=== PATIENT | female | born 1995 | race Two or more races ===

== ENCOUNTER 2020-03-25 16:48 | Emergency (ER) | payer MEDICAID, OTHER ==
[~2020-03-25] VITALS: Ht 154.9 cm; Wt 63.5 kg
[2020-03-25 17:26] LABS: Basophils # (auto) 0.1 10 ^3/uL (0-0.2); Basophils % (auto) 0.6 % (0.0-2.0); Eosinophils # (auto) 0 10 ^3/uL (0-0.8); Eosinophils % (auto) 0.1 % (0.0-7.0); Hematocrit 43.8 % (36.0-46.0); Hemoglobin 14.5 g/dL (12.2-16.2); Lymphocytes # (auto) 1.7 10 ^3/uL (0.4-5.4); Lymphocytes % (auto) 12.6 % (10.0-50.0); Mean Corpuscular Hemoglobin 29.1 pg (28.0-32.0); Mean Corpuscular Hgb Conc. 33.1 g/dL (32.0-36.0); Mean Corpuscular Volume 87.7 fL (80.0-100.0); Monocytes # (auto) 0.6 10 ^3/uL (0-1.3); Monocytes % (auto) 4.7 % (0.0-12.0); Nucleated Red Blood Cells % 0.1 %; Platelet Count (auto) 223 10^3/uL (140-450); Red Cell Distribution Width 13.6 % (11.8-14.3); White Blood Cell 13.4 10^3/uL (4.4-10.8)
[2020-03-25 17:55] LABS: Albumin 3.9 g/dL (3.4-5.0); Calcium 8.9 mg/dL (8.5-10.1); Potassium 3.2 mmol/L (3.5-5.1)
[2020-03-25 17:57] LABS: BUN/Creatinine Ratio 11.8
[2020-03-25 18:00] LABS: Bilirubin, Total 0.6 mg/dL (0.2-1.0); Total Protein 7.7 g/dL (6.4-8.2)
[2020-03-25] MEDS ORDERED: SODIUM CHLORIDE 0.9% 1,000 ML IV ONE ×2 (20:30→22:00)
[2020-03-25] MEDS ORDERED: ONDANSETRON HCL 4 MG/2 ML VIAL IV ONE (20:30)
[2020-03-25] MEDS ORDERED: POTASSIUM CHL 20MEQ/100ML 100 ML IV ONE (23:00)
[2020-03-25 23:50] VITALS: BP 114/47
[2020-03-26] MEDS ORDERED: ONDANSETRON HCL 4 MG/2 ML VIAL IV ONE (00:15)
[2020-03-26 00:16] LABS: Urine Bacteria MOD /hpf (None Seen); Urine Blood Negative /uL (Negative); Urine Mucus MODERATE (None Seen); Urine WBC 14 /hpf (0 - 5)
== END 2020-03-26 01:19 | disposition home or self-care (01) ==
LOC: ER 16:48
DX: O23.41 Unspecified infection of urinary tract in pregnancy, first trimester (principal); O21.8 Other vomiting complicating pregnancy; O99.281 Endocrine, nutritional and metabolic diseases complicating pregnancy, first trimester; E86.0 Dehydration; Z3A.08 8 weeks gestation of pregnancy
CPT/HCPCS: 36415; 76801; 80053; 81001; 84702; 85025; 96361; 96365; 96366; 96375; 96376; 99284; J2405; J3480; J7030

== ENCOUNTER → 2020-04-01 | Emergency (ER) | payer MEDICAID ==
[~2020-04-01] VITALS: Ht 154.9 cm; Wt 63.5 kg
[~2020-04-01] MED LIST: PROMETHAZINE HCL 25 MG/ML 1ML IV ONE; SODIUM CHLORIDE 0.9% 1,000 ML IV ONE
[2020-04-01 09:06] LABS: Basophils # (auto) 0 10 ^3/uL (0-0.2); Basophils % (auto) 0.2 % (0.0-2.0); Eosinophils # (auto) 0 10 ^3/uL (0-0.8); Eosinophils % (auto) 0.1 % (0.0-7.0); Hematocrit 48.7 % (36.0-46.0); Hemoglobin 16.6 g/dL (12.2-16.2); Lymphocytes # (auto) 1.4 10 ^3/uL (0.4-5.4); Lymphocytes % (auto) 6.8 % (10.0-50.0); Mean Corpuscular Volume 85.4 fL (80.0-100.0); Monocytes # (auto) 1.3 10 ^3/uL (0-1.3); Monocytes % (auto) 6.3 % (0.0-12.0); Neutrophils # (auto) 17.5 10 ^3/uL (1.6-8.6); Neutrophils % (auto) 86.6 % (37.0-80.0); Platelet Count (auto) 258 10^3/uL (140-450); Red Blood Cells 5.71 10^6/uL (4.0-5.20); Red Cell Distribution Width 12.9 % (11.8-14.3); White Blood Cell 20.2 10^3/uL (4.4-10.8)
[2020-04-01 09:25] LABS: Albumin 4.4 g/dL (3.4-5.0); Anion Gap 11 (5-15); Blood Urea Nitrogen 12 mg/dL (7-18); Calcium 9.3 mg/dL (8.5-10.1); Carbon Dioxide 27 mmol/L (21-32); Chloride 93 mmol/L (98-107); Glucose 110 mg/dL (74-106); Sodium 131 mmol/L (136-145)
[2020-04-01 09:28] VITALS: BP 121/78
[2020-04-01 09:29] LABS: Alanine Aminotransferase 26 U/L (13-56); Alkaline Phosphatase 82 U/L (45-117); Aspartate Aminotransferase 14 U/L (15-37); BUN/Creatinine Ratio 20.7; Bilirubin, Total 1.2 mg/dL (0.2-1.0); GFR African American 166 mL/min; GFR Non-African American 137 mL/min; Total Protein 8.4 g/dL (6.4-8.2)
[2020-04-01 09:30] LABS: Potassium 2.7 mmol/L (3.5-5.1)
[2020-04-01] MEDS: POTASSIUM EFFERVESENT TAB 25 MEQ PO ONE (09:45)
== END | disposition home or self-care (01) ==
LOC: ER 08:34
DX: O99.281 Endocrine, nutritional and metabolic diseases complicating pregnancy, first trimester (principal); E86.0 Dehydration; E87.6 Hypokalemia; O21.8 Other vomiting complicating pregnancy; Z3A.09 9 weeks gestation of pregnancy
CPT/HCPCS: 36415; 80053; 84484; 84702; 85025; 93005; 96361; 96374; 99284; J2550

== ENCOUNTER 2020-09-05 06:05 | Emergency (ER) | payer MEDICAID ==
[~2020-09-05] VITALS: Ht 157.5 cm; Wt 65.8 kg
[2020-09-05 06:58] LABS: Basophils # (auto) 0 10 ^3/uL (0-0.2); Basophils % (auto) 0.1 % (0.0-2.0); Eosinophils # (auto) 0 10 ^3/uL (0-0.8); Hematocrit 43.9 % (36.0-46.0); Hemoglobin 15.2 g/dL (12.2-16.2); Mean Corpuscular Hemoglobin 30.1 pg (28.0-32.0); Mean Corpuscular Hgb Conc. 34.6 g/dL (32.0-36.0); Mean Corpuscular Volume 86.9 fL (80.0-100.0); Monocytes # (auto) 0.6 10 ^3/uL (0-1.3); Monocytes % (auto) 5.3 % (0.0-12.0); Neutrophils # (auto) 9.4 10 ^3/uL (1.6-8.6); Neutrophils % (auto) 85.6 % (37.0-80.0); Nucleated Red Blood Cells % 0.1 %; Platelet Count (auto) 241 10^3/uL (140-450); Red Blood Cells 5.05 10^6/uL (4.0-5.20); Red Cell Distribution Width 13.2 % (11.8-14.3)
[2020-09-05 07:14] LABS: Albumin 4.7 g/dL (3.4-5.0); Magnesium 2.4 mg/dL (1.6-2.6); Potassium 3.1 mmol/L (3.5-5.1)
[2020-09-05 07:20] LABS: BUN/Creatinine Ratio 19.4; Bilirubin, Total 1.4 mg/dL (0.2-1.0); Total Protein 8.3 g/dL (6.4-8.2)
[2020-09-05] MEDS ORDERED: SODIUM CHLORIDE 0.9% 1,000 ML IV ONE ×2 (08:30)
[2020-09-05 10:11] VITALS: BP 118/80
[2020-09-05 11:04] LABS: Urine Bacteria NONE SEEN /hpf (None Seen); Urine Blood Negative /uL (Negative); Urine Mucus FEW (None Seen); Urine Specific Gravity 1.037 (1.001-1.035); Urine WBC 1 /hpf (0 - 5)
== END 2020-09-05 11:36 | disposition home or self-care (01) ==
LOC: ER 06:05
DX: O99.283 Endocrine, nutritional and metabolic diseases complicating pregnancy, third trimester (principal); E86.0 Dehydration; E87.6 Hypokalemia; D72.829 Elevated white blood cell count, unspecified; N39.0 Urinary tract infection, site not specified; Z3A.30 30 weeks gestation of pregnancy
CPT/HCPCS: 36415; 80053; 81001; 82150; 83690; 83735; 84702; 85025; 96360; 96361; 99285; J7030

== ENCOUNTER 2020-10-06 16:09 | Emergency (ER) | payer MEDICAID ==
[~2020-10-06] VITALS: Ht 154.9 cm; Wt 61.2 kg
[2020-10-06 16:30] VITALS: BP 124/79
[2020-10-06 17:40] LABS: Basophils # (auto) 0 10 ^3/uL (0-0.2); Basophils % (auto) 0.2 % (0.0-2.0); Eosinophils # (auto) 0 10 ^3/uL (0-0.8); Eosinophils % (auto) 0.1 % (0.0-7.0); Hematocrit 42.9 % (36.0-46.0); Hemoglobin 14.4 g/dL (12.2-16.2); Lymphocytes % (auto) 7.4 % (10.0-50.0); Mean Corpuscular Hemoglobin 29.9 pg (28.0-32.0); Mean Corpuscular Hgb Conc. 33.7 g/dL (32.0-36.0); Mean Corpuscular Volume 88.8 fL (80.0-100.0); Monocytes # (auto) 0.6 10 ^3/uL (0-1.3); Monocytes % (auto) 4.3 % (0.0-12.0); Nucleated Red Blood Cells % 0.1 %; Platelet Count (auto) 236 10^3/uL (140-450); Red Blood Cells 4.83 10^6/uL (4.0-5.20); Red Cell Distribution Width 13.4 % (11.8-14.3); White Blood Cell 13.6 10^3/uL (4.4-10.8)
[2020-10-06 17:55] LABS: BUN/Creatinine Ratio 13.2; Bilirubin, Total 0.6 mg/dL (0.2-1.0); Calcium 9.1 mg/dL (8.5-10.1); Potassium 3.6 mmol/L (3.5-5.1); Total Protein 7.6 g/dL (6.4-8.2)
== END 2020-10-06 20:17 | disposition left against medical advice (07) ==
LOC: ER 16:10
DX: O20.8 Other hemorrhage in early pregnancy (principal); Z3A.08 8 weeks gestation of pregnancy; Z53.21 Procedure and treatment not carried out due to patient leaving prior to being seen by health care provider
CPT/HCPCS: 36415; 80053; 84702; 85025

== ENCOUNTER 2024-06-03 21:48 | Emergency (ER) | payer MEDICAID ==
[~2024-06-03] VITALS: Ht 154.9 cm; Wt 61.0 kg
[2024-06-03 23:03] VITALS: BP 121/90; PULSE 128; RESP 17; TEMP 99.5; O2SAT 98
[2024-06-04] MEDS ORDERED: HYDR-4902 PO (00:35)
[2024-06-04] MEDS ORDERED: IBUP1TAB5 PO (00:35)
[2024-06-04] MEDS: PENICILLIN G POTASSIUM 3,000,000 UNITS in D5W 5% 50 ML IV ONE (01:33)
[2024-06-04] MEDS ORDERED: PENICILLIN G POTASSIUM 3,000,000 UNITS in D5W 5% 50 ML IV ONE (02:00)
== END 2024-06-04 00:37 | disposition left against medical advice (07) ==
LOC: ER 21:48
DX: S02.69XA Fracture of mandible of other specified site, initial encounter for closed fracture (principal); F15.90 Other stimulant use, unspecified, uncomplicated; Z79.899 Other long term (current) drug therapy; Y04.2XXA Assault by strike against or bumped into by another person, initial encounter; Y93.89 Activity, other specified; Y92.89 Other specified places as the place of occurrence of the external cause; Y99.8 Other external cause status
CPT/HCPCS: 70486; 99284; J2540; J7060

== ENCOUNTER 2025-03-13 12:08 | Emergency (ER) | payer MEDICAID ==
[~2025-03-13] VITALS: Ht 157.5 cm; Wt 60.6 kg
[~2025-03-13 12:08] MED LIST changes: +HYDR-4902 PO; +IBUP1TAB5 PO; -PROMETHAZINE HCL 25 MG/ML 1ML IV ONE; -SODIUM CHLORIDE 0.9% 1,000 ML IV ONE
--- NOTE | 2025-03-13 12:30 | ED.PDOC ---
GI ASSESSMENT HPI Comments 29 year old female presents to the ED with a chief complaint of abdominal pain onset today (03/13/25) around 02:00. Patient woke up experiencing lower abdominal pain/ suprapubic region as well as nausea, vomiting, urinary frequency, she feels dehydrated. Patient had 4-5 beers yesterday, smoked marihuana this morning. Rates pain 8/10. Denies PMHx as well as chest pain, shortness of breath, dysuria, hematuria, headache, dizziness, fevers, chills. No other symptoms or modifying factors present at this time. Chief Complaint: Abdominal Pain Time Seen by MD: 12:16 Primary Care Provider: abhinav Hankins Notes: Medications, Allergies Allergies: Coded Allergies: NO KNOWN ALLERGIES (Unverified , 03/25/20) Home Meds Active Scripts Ibuprofen Micronized (Ibuprofen) 600 Mg Tab, 600 MG PO Q8HPRN PRN, #20 TAB Prov:VERONICA PACK PAC 06/04/24 Hydrocodone-Acetaminophen (Hydrocodone Bitartrate/AC 5-325 mg) 1 Tab Tab, 1 TAB PO Q6HPRN PRN, #15 TAB Prov:VERONICA PACK PAC 06/04/24 Information Source: Patient Mode of Arrival: Ambulatory Timing: Hours Duration: Since onset Prehospital treatment: None Quality: Sharp Severity: Moderate Recent: Ingestion of ETOH Recent Hx of: None Pain Location: Suprapubic Modifying Factors: Nothing Associated sign and symptoms: Nausea, Vomiting, Abdominal Pain Past Medical History PAST MEDICAL HISTORY: Denies Surgical History: Denies all surgeries PSYCHOPAEDIC NURSE History: No Pertinent PSYCHOPAEDIC NURSE History Family History Family History: Reviewed,noncontributory to illness Social History Smoker: Non-Smoker Alcohol: Occasionally Drugs: Marijuana Lives In: Home Constitutional: denies: chills, diaphoresis, fatigue, fever, malaise, sweats, weakness, others EENTM: denies: blurred vision, double vision, ear bleeding, ear discharge, ear drainage, ear pain, ear ringing, eye pain, eye redness, hearing loss, mouth pain, mouth swelling, nasal discharge, nose bleeding, nose congestion, nose pain, photophobia, tearing, throat pain, throat swelling, voice changes, others Respiratory: denies: cough, hemoptysis, orthopnea, SOB at rest, shortness of breath, SOB with excertion, stridor, wheezing, others Cardiovascular: denies: chest pain, dizzy spells, diaphoresis, Dyspnea on exertion, edema, irregular heart beat, left arm pain, lightheadedness, palpitations, PND, syncope, others Gastrointestinal: reports: abdominal pain, nausea, vomiting; denies: abdomen distended, blood streaked bowels, constipated, diarrhea, dysphagia, difficulty swallowing, hematemesis, melena, poor appetite, poor fluid intake, rectal bleeding, rectal pain, others Genitourinary: denies: abnormal vagina bleeding, burning, dyspareunia, dysuria, flank pain, frequency, hematuria, incontinence, pain, , vagina discharge, urgency, others Neurological: denies: dizziness, fainting, headache, left sided numbness, left sided weakness, numbness, paresthesia, pre-existing deficit, right sided numbness, right sided weakness, seizure, speech problems, tingling, tremors, weakness, others Musculoskeletal: denies: back pain, gout, joint pain, joint swelling, muscle pa in, muscle stiffness, neck pain, others Integumetry: denies: bruises, change in color, change in hair/nails, dryness, laceration, lesions, lumps, rash, wounds, others Allergic/Immunocompromised: denies: Difficulty Healing, Frequent Infections, Hives, Itching, others Hematologic/Lymphatic: denies: anemia, blood clots, easy bleeding, easy bruising, swollen glands, others Endocrine: denies: excessive hunger, excessive sweating, excessive thirst, excessive urination, flushing, intolerance to cold, intolerance to heat, unexplained weight gain, unexplained weight loss, others Psychiatric: denies: anxiety, bipolar disorder, depression, hopeless, panic disorder, schizophrenia, sleepless, suicidal, others All Other Systems: Reviewed and Negative Physical Exam General Appearance: Mild Distress HEENT: Normal ENT Inspection, Pharynx Normal, TMs Normal Neck: Full Range of Motion, Non-Tender, Normal, Normal Inspection Respiratory: Chest Non-Tender, Lungs Clear, No Accessory Muscle Use, No Respiratory Distress, Normal Breath Sounds Cardiovascular: No Edema, No JVD, No Murmur, No Gallop, Normal Peripheral Pulses, Regular Rate/Rhythm Breast Exam: Deferred Gastrointestinal: No Organomegaly, Non Tender, No Pulsatile Mass, Normal Bowel Sounds, Soft Genitalia: Deferred Pelvic: Deferred Rectal: Deferred Extremities: No calf tenderness, Normal capillary refill, Normal inspection, Normal range of motion, Non-tender, No pedal edema Musculoskeletal : Apperance: Normal Neurologic: Alert, catering operations manager II-XII nml as Tested, No Motor Deficits, Normal Affect, Normal Mood, No Sensory Deficits Cerebellar Function: Normal Reflexes: Normal Skin: Dry, Normal Color, Warm Lymphatic: No Adenopathy Was a procedure done? Was a procedure done?: No GI differential Dx Differential Diagnosis: Gastritis/PUD, Gastroenteritis, Pancreatitis, UTI, Electrolyte Imbalance, Food Poisoning X-Ray, Labs, Meds, VS Vital Signs Date Time Temp Pulse Resp B/P (MAP) Pulse Ox O2 Delivery O2 Flow Rate FiO2 03/13/25 12:49 120 18 95 Room Air 03/13/25 12:49 98.9 120 18 123/83 (96) 95 98.9 03/13/25 12:17 98.5 130 19 141/93 (109) 96 98.5 Lab Test 03/13/25 13:10 Range/Units White Blood Count 10.5 4.4-10.8 10^3/uL Red Blood Count 4.65 4.0-5.20 10^6/uL Hemoglobin 13.6 12.2-16.2 g/dL Hematocrit 40.4 36.0-46.0 % Mean Corpuscular Volume 87.0 80.0-100.0 fL Mean Corpuscular Hemoglobin 29.2 28.0-32.0 pg Mean Corpuscular Hemoglobin Concent 33.5 32.0-36.0 g/dL Red Cell Distribution Width 14.7 H 11.8-14.3 % Platelet Count 252 140-450 10^3/uL Mean Platelet Volume 9.0 6.9-10.8 fL Neutrophils (%) (Auto) 91.6 H 37.0-80.0 % Lymphocytes (%) (Auto) 4.9 L 10.0-50.0 % Monocytes (%) (Auto) 3.2 0.0-12.0 % Eosinophils (%) (Auto) 0.1 0.0-7.0 % Basophils (%) (Auto) 0.2 0.0-2.0 % Neutrophils # (Auto) 9.6 H 1.6-8.6 10 ^3/uL Lymphocytes # (Auto) 0.5 0.4-5.4 10 ^3/uL Monocytes # (Auto) 0.3 0-1.3 10 ^3/uL Eosinophils # (Auto) 0 0-0.8 10 ^3/uL Basophils # (Auto) 0 0-0.2 10 ^3/uL Nucleated Red Blood Cells 0.1 % Sodium Level 143 136-145 mmol/L Potassium Level 3.6 3.5-5.1 mmol/L Chloride Level 109 H 98-107 mmol/L Carbon Dioxide Level 23 20-31 mmol/L Anion Gap 11 5-15 Blood Urea Nitrogen 8 L 9-23 mg/dL Creatinine 0.65 0.550-1.02 mg/dL Glomerular Filtration Rate Calc 123 >90 mL/min BUN/Creatinine Ratio 12.3 10.0-20.0 Serum Glucose 110 H 74-106 mg/dL Calcium Level 8.6 L 8.7-10.4 mg/dL Current Medications Medications (Trade) Dose Ordered Sig/Vicki Route Start Time Stop Time Status Last Admin Sodium Chloride 1,000 ml @ 1,000 mls/hr Q1H ONCE IVB 03/13/25 12:30 03/13/25 13:29 DC 03/13/25 12:52 Pantoprazole Sodium (Protonix) 40 mg ONCE ONCE IV 03/13/25 12:30 03/13/25 12:31 DC 03/13/25 12:55 Prochlorperazine Edisylate (Compazine Inj) 10 mg ONCE ONCE IV 03/13/25 12:30 03/13/25 12:31 DC 03/13/25 12:55 The CBC and chemistry panel are within normal limits An IV Hep-Lock established The patient was given a 1 L bolus of normal saline The patient was given Protonix 40 mg IV push The patient was also given Compazine 10 mg IV push The patient was feels somewhat better after the medication but the results are not completed and now the patient states that she needs to sign out against medical advice. She states that her child not hurt and school so she does need to leave The patient has signed out AMA Images Reviewed?: Images reviewed and evaluated by me Time of 1ST Reevaluation: 12:46 Reevaluation 1ST: Unchanged Patient Education/Counseling: Diagnosis, Treatment, Prognosis Family Education/Counseling: No Family Present Additional Information The following tests were ordered, and results were reviewed by me: CBC, UA, BMP, EKG I discussed treatment and results with medical personnel and: patient Comprehensive systems review obtained and negative except for what is stated in the HPI. Departure 1 Departure Time of Disposition: 14:19 Impression: Primary Impression: Dehydration Additional Impression: Vomiting Qualified Codes: R11.14 - Bilious vomiting Disposition: 07 LEFT AGAINST MEDICAL ADVICE Condition: Fair Critical Care Note Critical Care Time?: No Stability Stability form required: No Heart Score Heart Score: Heart Score Response (Comments) Value History N/A 0 EKG N/A 0 Age N/A 0 Risk Factors N/A 0 Troponin N/A 0 Total 0 I personally scribed for MARIBELL HUMPHREYS MD ([email or web address]) on 03/13/25 at 12:30. Electronically submitted by Dana Bravo ([email or web address]). I personally scribed for MARIBELL HUMPHREYS MD ([email or web address]) on 03/13/25 at 12:34. Electronically submitted by Dana Bravo ([email or web address]). MARIBELL HUMPHREYS MD Mar 13, 2025 12:30
[2025-03-13 12:49] VITALS: BP 123/83; PULSE 120; RESP 18; TEMP 98.9; O2SAT 95
[2025-03-13] MEDS: SODIUM CHLORIDE 0.9% 1,000 ML IVB ONE (12:52)
[2025-03-13] MEDS: PANTOPRAZOLE 40 MG/10 ML VIAL INJ IV ONE (12:55)
[2025-03-13] MEDS: PROCHLORPERAZINE EDISYLATE 5 MG/ML 2ML VIAL IV ONE (12:55)
[2025-03-13 13:40] LABS: Basophils # (auto) 0 10 ^3/uL (0-0.2); Basophils % (auto) 0.2 % (0.0-2.0); Eosinophils # (auto) 0 10 ^3/uL (0-0.8); Eosinophils % (auto) 0.1 % (0.0-7.0); Hematocrit 40.4 % (36.0-46.0); Hemoglobin 13.6 g/dL (12.2-16.2); Lymphocytes # (auto) 0.5 10 ^3/uL (0.4-5.4); Lymphocytes % (auto) 4.9 % (10.0-50.0); Mean Corpuscular Hemoglobin 29.2 pg (28.0-32.0); Mean Corpuscular Hgb Conc. 33.5 g/dL (32.0-36.0); Monocytes # (auto) 0.3 10 ^3/uL (0-1.3); Monocytes % (auto) 3.2 % (0.0-12.0); Neutrophils # (auto) 9.6 10 ^3/uL (1.6-8.6); Neutrophils % (auto) 91.6 % (37.0-80.0); Nucleated Red Blood Cells % 0.1 %; Platelet Count (auto) 252 10^3/uL (140-450); Red Blood Cells 4.65 10^6/uL (4.0-5.20); Red Cell Distribution Width 14.7 % (11.8-14.3); White Blood Cell 10.5 10^3/uL (4.4-10.8)
[2025-03-13 13:49] LABS: Potassium 3.6 mmol/L (3.5-5.1); Sodium 143 mmol/L (136-145)
[2025-03-13 13:50] LABS: Anion Gap 11 (5-15); Carbon Dioxide 23 mmol/L (20-31); Chloride 109 mmol/L (98-107)
[2025-03-13 13:52] LABS: Calcium 8.6 mg/dL (8.7-10.4)
[2025-03-13 13:55] LABS: BUN/Creatinine Ratio 12.3 (10.0-20.0)
[2025-03-13 13:56] LABS: Blood Urea Nitrogen 8 mg/dL (9-23); Glucose 110 mg/dL (74-106)
== END 2025-03-13 14:16 | disposition left against medical advice (07) ==
LOC: ER 12:08
DX: E86.0 Dehydration (principal); R11.2 Nausea with vomiting, unspecified; F12.90 Cannabis use, unspecified, uncomplicated
CPT/HCPCS: 36415; 80048; 85025; 96361; 96374; 96375; 99284; J0780; J2470; J7030

== ENCOUNTER 2025-05-19 14:54 | Emergency (ER) | payer SELFPAY ==
--- NOTE | 2025-05-19 15:20 | ED.PDOC ---
History of Present Illness HPI Comments 29-year-old female presents with a chief complaint of request for DNC. Patient states that she was told by her CLAIMS CLERK that she miscarried on May 03, 2025 but was discharged as a patient due to a lap in her insurance. Patient mentions that she needs to have a DNC to remove the products of conception. Patient denies any vaginal bleeding or discharge. Time Seen by MD: 15:05 Primary Care Provider: abhinav Hankins Notes: Medications, Allergies Allergies: Coded Allergies: NO KNOWN ALLERGIES (Unverified , 03/25/20) Home Meds Active Scripts Ibuprofen Micronized (Ibuprofen) 600 Mg Tab, 600 MG PO Q8HPRN PRN, #20 TAB Prov:VERONICA PACK PAC 06/04/24 Hydrocodone-Acetaminophen (Hydrocodone Bitartrate/AC 5-325 mg) 1 Tab Tab, 1 TAB PO Q6HPRN PRN, #15 TAB Prov:VERONICA PACK PAC 06/04/24 Information Source: Patient Mode of Arrival: Ambulatory Severity: Moderate Timing: Days Duration: Since onset Prehospital treatment: None Past Medical History PAST MEDICAL HISTORY: Denies Surgical History: Denies all surgeries STAVE MACHINE TENDER History: No Pertinent STAVE MACHINE TENDER History Family History Family History: Reviewed,noncontributory to illness Social History Smoker: Non-Smoker Alcohol: Occasionally Drugs: Marijuana Lives In: Home Constitutional: denies: chills, diaphoresis, fatigue, fever, malaise, sweats, weakness, others EENTM: denies: blurred vision, double vision, ear bleeding, ear discharge, ear drainage, ear pain, ear ringing, eye pain, eye redness, hearing loss, mouth pain, mouth swelling, nasal discharge, nose bleeding, nose congestion, nose pain, photophobia, tearing, throat pain, throat swelling, voice changes, others Respiratory: denies: cough, hemoptysis, orthopnea, SOB at rest, shortness of breath, SOB with excertion, stridor, wheezing, others Cardiovascular: denies: chest pain, dizzy spells, diaphoresis, Dyspnea on exertion, edema, irregular heart beat, left arm pain, lightheadedness, palpitations, PND, syncope, others Gastrointestinal: denies: abdomen distended, abdominal pain, blood streaked bowels, constipated, diarrhea, dysphagia, difficulty swallowing, hematemesis, melena, nausea, poor appetite, poor fluid intake, rectal bleeding, rectal pain, vomiting, others Genitourinary: denies: abnormal vagina bleeding, burning, dyspareunia, dysuria, flank pain, frequency, hematuria, incontinence, pain, , vagina discharge, urgency, others Neurological: denies: dizziness, fainting, headache, left sided numbness, left sided weakness, numbness, paresthesia, pre-existing deficit, right sided numbness, right sided weakness, seizure, speech problems, tingling, tremors, weakness, others Musculoskeletal: denies: back pain, gout, joint pain, joint swelling, muscle pain, muscle stiffness, neck pain, others Integumetry: denies: bruises, change in color, change in hair/nails, dryness, laceration, lesions, lumps, rash, wounds, others Allergic/Immunocompromised: denies: Difficulty Healing, Frequent Infections, Hives, Itching, others Hematologic/Lymphatic: denies: anemia, blood clots, easy bleeding, easy bruising, swollen glands, others Endocrine: denies: excessive hunger, excessive sweating, excessive thirst, excessive urination, flushing, intolerance to cold, intolerance to heat, unexplained weight gain, unexplained weight loss, others Psychiatric: denies: anxiety, bipolar disorder, depression, hopeless, panic disorder, schizophrenia, sleepless, suicidal, others All Other Systems: Reviewed and Negative ( PER HPI) Physical Exam General Appearance: Moderate Distress, Normal HEENT: Normal ENT Inspection, Pharynx Normal, TMs Normal Neck: Full Range of Motion, Non-Tender, Normal, Normal Inspection Respiratory: Chest Non-Tender, Lungs Clear, No Accessory Muscle Use, No Respiratory Distress, Normal Breath Sounds Cardiovascular: No Edema, No JVD, No Murmur, No Gallop, Normal Peripheral Pulses, Regular Rate/Rhythm Breast Exam: Deferred Gastrointestinal: No Organomegaly, Non Tender, No Pulsatile Mass, Normal Bowel Sounds, Soft Genitalia: Deferred Pelvic: Deferred Rectal: Deferred Extremities: No calf tenderness, Normal capillary refill, Normal inspection, Normal range of motion, Non-tender, No pedal edema Musculoskeletal : Apperance: Normal Neurologic: Alert, sales representative electric service II-XII nml as Tested, No Motor Deficits, Normal Affect, Normal Mood, No Sensory Deficits Cerebellar Function: Normal Reflexes: Normal Skin: Dry, Normal Color, Warm Peripheral Pulses: 3+ Radial (R), 3+ Radial (L) Lymphatic: No Adenopathy Was a procedure done? Was a procedure done?: No Differential Dx Considerations may include: Miscarriage Urinary tract infection X-Ray, Labs, Meds, VS Patient alert. Vitals stable. Came in because she possibly has demise. Ambulating. Not septic. Good skin color. Explained to the patient that she will be ordered ultrasound. She insists on going home. She could not wait because she had children at home. Explained to the patient. Continue monitoring. Time of 1ST Reevaluation: 15:35 Reevaluation 1ST: Unchanged Patient Education/Counseling: Diagnosis, Treatment, Need For Follow Up Family Education/Counseling: No Family Present Departure 1 Departure Time of Disposition: 15:27 Impression: Primary Impression: Vaginal bleeding during Disposition: 07 LEFT AWOL/ELOPED Condition: Good Critical Care Note Critical Care Time?: No Stability Stability form required: No Heart Score Heart Score: Heart Score Response (Comments) Value History N/A 0 EKG N/A 0 Age N/A 0 Risk Factors N/A 0 Troponin N/A 0 Total 0 I personally scribed for DOMINGO LONG MD ([email or web address]) on 05/19/25 at 15:20. Electronically submitted by Suhail Mcgill ([email or web address]). DOMINGO LONG MD May 19, 2025 15:20
== END 2025-05-19 15:18 | disposition left against medical advice (07) ==
LOC: ER 14:54
DX: O46.90 Antepartum hemorrhage, unspecified, unspecified trimester (principal); Z3A.00 Weeks of gestation of pregnancy not specified

== ENCOUNTER 2025-08-07 09:20 | Emergency (ER) | payer MEDICAID ==
[~2025-08-07] VITALS: Ht 157.5 cm; Wt 55.1 kg
--- NOTE | 2025-08-07 10:08 | ED.PDOC ---
History of Present Illness HPI Comments 29F para 4 presented to the ER for lower abd pain for 2 days, reports that she is menstruating for the past 10 days, light bleeding, and the pain has never been like this, says that she has been unable to keep solid or liquid food down and has been having yellowish watery emesis 4-5x a day, and nasuea, pain in non radiating, she is sexually active with a male partner for the past 10 years, monogamous, denies symptoms of uti or any vaginal discharge, denies fever and chills. She got depot shot 1.5months back patient examined in [facility], LLQ tenderness. vitally stable. CT abdomen shows cholelithiasis but no signs of cholecystitis. IV morphine 1 mg given. Patient wanted to go home, discharge. Chief Complaint: Abdominal Pain Time Seen by MD: 09:32 Primary Care Provider: abhinav Allergies: Coded Allergies: NO KNOWN ALLERGIES (Unverified , 03/25/20) Home Meds Active Scripts Ibuprofen Micronized (Ibuprofen) 600 Mg Tab, 600 MG PO Q8HPRN PRN, #20 TAB Prov:VERONICA PACK 06/04/24 Hydrocodone-Acetaminophen (Hydrocodone Bitartrate/AC 5-325 mg) 1 Tab Tab, 1 TAB PO Q6HPRN PRN, #15 TAB Prov:VERONICA PACK 06/04/24 Information Source: Patient Mode of Arrival: Ambulatory Past Medical History PAST MEDICAL HISTORY: Denies Surgical History (Other): R jaw surgery TECH INTERN History: No Pertinent TECH INTERN History Family History Family History: Reviewed,noncontributory to illness Social History Smoker: Non-Smoker Alcohol: Occasionally Drugs: Marijuana Lives In: Home Constitutional: denies: chills, diaphoresis, fatigue, fever, malaise, sweats, weakness, others EENTM: denies: blurred vision, double vision, ear bleeding, ear discharge, ear drainage, ear pain, ear ringing, eye pain, eye redness, hearing loss, mouth pain, mouth swelling, nasal discharge, nose bleeding, nose congestion, nose pain, photophobia, tearing, throat pain, throat swelling, voice changes, others Respiratory: denies: cough, hemoptysis, orthopnea, SOB at rest, shortness of breath, SOB with excertion, stridor, wheezing, others Cardiovascular: denies: chest pain, dizzy spells, diaphoresis, Dyspnea on exertion, edema, irregular heart beat, left arm pain, lightheadedness, palpitations, PND, syncope, others Gastrointestinal: reports: abdominal pain, nausea, vomiting Genitourinary: reports: abnormal vagina bleeding Neurological: denies: dizziness, fainting, headache, left sided numbness, left sided weakness, numbness, paresthesia, pre-existing deficit, right sided numbness, right sided weakness, seizure, speech problems, tingling, tremors, weakness, others Musculoskeletal: denies: back pain, gout, joint pain, joint swelling, muscle pain, muscle stiffness, neck pain, others Integumetry: denies: bruises, change in color, change in hair/nails, dryness, laceration, lesions, lumps, rash, wounds, others Allergic/Immunocompromised: denies: Difficulty Healing, Frequent Infections, Hives, Itching, others Hematologic/Lymphatic: denies: anemia, blood clots, easy bleeding, easy brui sing, swollen glands, others Endocrine: denies: excessive hunger, excessive sweating, excessive thirst, ex cessive urination, flushing, intolerance to cold, intolerance to heat, unexplained weight gain, unexplained weight loss, others Physical Exam General Appearance: No Apparent Distress, Normal HEENT: Normal ENT Inspection, Pharynx Normal, TMs Normal Neck: Full Range of Motion, Non-Tender, Normal, Normal Inspection Respiratory: Chest Non-Tender, Lungs Clear, No Accessory Muscle Use, No Respiratory Distress, Normal Breath Sounds Cardiovascular: No Edema, No JVD, No Murmur, No Gallop, Normal Peripheral Pulses, Regular Rate/Rhythm Breast Exam: Deferred Gastrointestinal: LLQ, No Organomegaly, No Pulsatile Mass, Normal Bowel Sounds, Soft, Tenderness Genitalia: Deferred Pelvic: Deferred Rectal: Deferred Extremities: No calf tenderness, Normal capillary refill, Normal inspection, Normal range of motion, Non-tender, No pedal edema Neurologic: Alert, semiconductor technician II-XII nml as Tested, No Motor Deficits, Normal Affect, Normal Mood, No Sensory Deficits Cerebellar Function: Normal Reflexes: Normal Skin: Dry, Normal Color, Warm Lymphatic: No Adenopathy Was a procedure done? Was a procedure done?: No Differential Dx Considerations may include: Appendicitis, pancreatitis, UTI, ovarian torsion X-Ray, Labs, Meds, VS Vital Signs Date Time Temp Pulse Resp B/P (MAP) Pulse Ox O2 Delivery O2 Flow Rate FiO2 08/07/25 15:22 96 18 114/87 08/07/25 14:28 98.3 101 18 114/87 (96) 96 98.3 08/07/25 11:40 97.5 100 16 118/84 (95) 94 97.5 08/07/25 09:21 98.8 108 18 126/71 96 98.8 Lab Test 08/07/25 12:24 08/07/25 10:16 Range/Units Urine Color Dark-brown Yellow Urine Clarity Ex.turbid Clear Urine pH 6.0 5.0-9.0 Urine Specific [place] 1.035 1.001-1.035 Urine Protein 2+ H Negative Urine Ketones 2+ H Negative Urine Blood 3+ H Negative /uL Urine Nitrite Negative Negative Urine Bilirubin Negative Negative Urine Urobilinogen Normal Negative mg/dL Urine Leukocyte Esterase 1+ Negative /uL Urine RBC 1433 0 - 4 /hpf Urine Microscopic WBC 53 H 0-5 /HPF Urine Squamous Epithelial Cells Many <5 /hpf Urine Bacteria Few H None Seen /hpf Urine Mucus Moderate None Seen Urine Glucose Normal Normal mg/dL Urine Test Negative Negative White Blood Count 7.7 4.4-10.8 10^3/uL Red Blood Count 5.09 4.0-5.20 10^6/uL Hemoglobin 13.8 12.2-16.2 g/dL Hematocrit 42.3 36.0-46.0 % Mean Corpuscular Volume 83.2 80.0-100.0 fL Mean Corpuscular Hemoglobin 27.2 L 28.0-32.0 pg Mean Corpuscular Hemoglobin Concent 32.7 32.0-36.0 g/dL Red Cell Distribution Width 15.6 H 11.8-14.3 % Platelet Count 273 140-450 10^3/uL Mean Platelet Volume 8.9 6.9-10.8 fL Neutrophils (%) (Auto) 84.9 H 37.0-80.0 % Lymphocytes (%) (Auto) 9.6 L 10.0-50.0 % Monocytes (%) (Auto) 4.4 0.0-12.0 % Eosinophils (%) (Auto) 0.8 0.0-7.0 % Basophils (%) (Auto) 0.3 0.0-2.0 % Neutrophils # (Auto) 6.5 1.6-8.6 10 ^3/uL Lymphocytes # (Auto) 0.7 0.4-5.4 10 ^3/uL Monocytes # (Auto) 0.3 0-1.3 10 ^3/uL Eosinophils # (Auto) 0.1 0-0.8 10 ^3/uL Basophils # (Auto) 0 0-0.2 10 ^3/uL Nucleated Red Blood Cells 0.1 % Sodium Level 141 136-145 mmol/L Potassium Level 3.5 3.5-5.1 mmol/L Chloride Level 102 98-107 mmol/L Carbon Dioxide Level 26 20-31 mmol/L Anion Gap 13 5-15 Blood Urea Nitrogen 10 9-23 mg/dL Creatinine 0.71 0.550-1.02 mg/dL Glomerular Filtration Rate Calc 119 >90 mL/min BUN/Creatinine Ratio 14.1 10.0-20.0 Serum Glucose 92 74-106 mg/dL Calcium Level 9.7 8.7-10.4 mg/dL Lipase 38 12-53 U/L Current Medications Medications (Trade) Dose Ordered Sig/Vicki Route Start Time Stop Time Status Last Admin Sodium Chloride 1,000 ml @ 100 mls/hr Q10H ONCE IV 08/07/25 11:15 08/07/25 21:14 08/07/25 11:15 Ondansetron HCl (Zofran) 4 mg ONCE ONCE IV 08/07/25 13:30 08/07/25 13:39 DC 08/07/25 14:10 Acetaminophen (Tylenol Tablet) 650 mg ONCE ONCE PO 08/07/25 13:30 08/07/25 13:39 DC 08/07/25 14:10 Morphine Sulfate 1 mg ONCE ONCE IV 08/07/25 15:30 08/07/25 15:31 DC 08/07/25 15:22 Time of 1ST Reevaluation: 11:30 Reevaluation 1ST: Unchanged Time of 2ND Reevaluation: 13:00 Reevaluation 2ND: Unchanged Time of 3RD Reevaluation: 15:00 Reevaluation 3RD: Improved Patient Education/Counseling: Need For Follow Up Family Education/Counseling: No Family Present SEPSIS Sepsis Screen Date sepsis recognized/suspect: Aug 07, 2025 Time Sepsis recognized/suspect: 920 Recent Procedure: No On Antibiotic Therapy: No Respiratory Rate >20: No Heart Rate >90: Yes Temp<36 C (96.8 F) or >38.3 C: No SBP <90 or MAP <65 mmHG: No New Acute Mental Status Change: No Is the patient on CPAP, BIPAP,: No Physician Orders Sodium Chloride 0.9% (08/07/25 11:15) Ct Ab Pel Wo Con-No Oral Or Iv (08/07/25 13:56) Vital Signs Date Time Temp Pulse Resp B/P (MAP) Pulse Ox O2 Delivery O2 Flow Rate FiO2 08/07/25 15:22 96 18 114/87 08/07/25 14:28 98.3 101 18 114/87 (96) 96 98.3 08/07/25 11:40 97.5 100 16 118/84 (95) 94 97.5 08/07/25 09:21 98.8 108 18 126/71 96 98.8 Laboratory Tests Test 08/07/25 10:16 White Blood Count 7.7 10^3/uL (4.4-10.8) Medications Medications Dose Ordered Sig/Vicki Route Start Time Stop Time Status Last Admin Dose Admin Acetaminophen 650 mg ONCE ONCE PO 08/07/25 13:30 08/07/25 13:39 DC 08/07/25 14:10 Morphine Sulfate 1 mg ONCE ONCE IV 08/07/25 15:30 08/07/25 15:31 DC 08/07/25 15:22 Ondansetron HCl 4 mg ONCE ONCE IV 08/07/25 13:30 08/07/25 13:39 DC 08/07/25 14:10 Sodium Chloride 1,000 ml @ 100 mls/hr Q10H ONCE IV 08/07/25 11:15 08/07/25 21:14 08/07/25 11:15 Departure 1 Departure Time of Disposition: 16:00 Impression: Primary Impression: Cholelithiasis Additional Impression: Dysmenorrhea Disposition: 01 HOME / SELF CARE / HOMELESS Condition: Stable Referrals Discharge Clinic Discharged With: Self Critical Care Note Critical Care Time?: No Stability Stability form required: CONSUELO Dennis RESIDENT Aug 07, 2025 10:08
[2025-08-07 11:01] LABS: Hematocrit 42.3 % (36.0-46.0); Hemoglobin 13.8 g/dL (12.2-16.2); Mean Corpuscular Hemoglobin 27.2 pg (28.0-32.0); Mean Corpuscular Volume 83.2 fL (80.0-100.0); Nucleated Red Blood Cells % 0.1 %
[2025-08-07 11:12] LABS: Chloride 102 mmol/L (98-107); Sodium 141 mmol/L (136-145)
[2025-08-07 11:13] LABS: Anion Gap 13 (5-15); Calcium 9.7 mg/dL (8.7-10.4); Carbon Dioxide 26 mmol/L (20-31); Potassium 3.5 mmol/L (3.5-5.1)
[2025-08-07] MEDS: SODIUM CHLORIDE 0.9% 1,000 ML IV ONE (11:15)
[2025-08-07 11:18] LABS: BUN/Creatinine Ratio 14.1 (10.0-20.0); Blood Urea Nitrogen 10 mg/dL (9-23); Glucose 92 mg/dL (74-106)
[2025-08-07 12:44] LABS: Urine Protein, UAD 2+ (Negative)
[2025-08-07] MEDS: ONDANSETRON HCL 4 MG/2 ML VIAL IV ONE (14:10)
[2025-08-07] MEDS: ACETAMINOPHEN 325 MG TAB PO ONE (14:10)
--- NOTE | 2025-08-07 14:35 | DVH ---
COMPUTERIZED TOMOGRAPHY ABDOMEN AND PELVIS WITHOUT CONTRAST REASON FOR EXAM: intractable lower abd pain COMPARISON: None TECHNIQUE: Spiral scans were acquired from the diaphragm to the symphysis pubis without intravenous c ontrast administration. 2-D coronal and sagittal reformatted images were provided. Radiation optimiza tion: All CT scans at this facility use at least one of these dose optimization techniques: Automated exposure control mA and/or kV adjustment per patient size (includes targeted exams where dose is mat ched to clinical indication) or iterative reconstruction. RADIATION DOSE: CTDI: 5.22 mGy DLP: 258.76 mGy-cm FINDINGS: The visualized lung bases are clear. There is no pleural effusion. There is no pericardial effusion . The spleen is not enlarged. The liver is normal in size and contour. There are several calcified gall stones. Evaluation of the abdominal organs is suboptimal in the absence of intravenous contrast. Unen hanced appearance of the pancreas is grossly unremarkable. The adrenal glands are within normal limit s. The kidneys are similar in size. There is no hydronephrosis of either kidney. No renal, ureteral, or bladder calculus is identified. There is no abdominal aortic aneurysm. No pathologic lymphadenopa thy is identified by size criteria. The urinary bladder is grossly unremarkable. The uterus and ovari es are within normal limits for age. No free fluid is identified in the abdomen or pelvis. The colon ic stool burden is small. The appendix is normal. There is no pathologic distention of the small julian wel. There is prominence of the gonadal veins. No acute osseous abnormality is identified. IMPRESSION: No acute finding in the abdomen or pelvis to explain the patient's abdominal pain. Cholelithiasis without other findings to suggest acute cholecystitis. Normal appendix Prominence of the gonadal veins. This is nonspecific but can be seen with pelvic congestion syndrome. Correlate clinically for pelvic congestion syndrome.
[2025-08-07] MEDS: MORPHINE SULFATE INJ 2 MG/ml SYRG IM ONE (15:15)
[2025-08-07] MEDS: MORPHINE SULFATE INJ 2 MG/ml SYRG IV ONE (15:22)
[2025-08-07 16:56] VITALS: BP 122/81; PULSE 93; RESP 18; TEMP 98; O2SAT 99
== END 2025-08-07 16:55 | disposition home or self-care (01) ==
LOC: ER 09:20
DX: K80.20 Calculus of gallbladder without cholecystitis without obstruction (principal); N94.6 Dysmenorrhea, unspecified; Z79.899 Other long term (current) drug therapy
CPT/HCPCS: 36415; 74176; 80048; 81001; 81025; 83690; 85025; 96361; 96374; 96375; 99285; J2270; J2405; J7030

== ENCOUNTER 2025-09-15 15:45 | Emergency (ER) | payer MEDICAID ==
[~2025-09-15] VITALS: Ht 157.5 cm; Wt 59.0 kg
[2025-09-15 16:16] VITALS: PULSE 117; RESP 20; O2SAT 98
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
[2025-09-15 19:55] VITALS: BP 116/82; PULSE 100; RESP 20; TEMP 98.1; O2SAT 97
[2025-09-15] MEDS ORDERED: GABA300T4 PO (20:12)
== END 2025-09-15 21:06 | disposition home or self-care (01) ==
LOC: EDUNIT# 15:45 → ER 15:45 → EDBD 15:45 → ER 21:06
DX: S01.81XA Laceration without foreign body of other part of head, initial encounter (principal); Y08.89XA Assault by other specified means, initial encounter; Y93.89 Activity, other specified; Y92.89 Other specified places as the place of occurrence of the external cause; Y99.8 Other external cause status
CPT/HCPCS: 12011; 70450; 70486